=== PATIENT | male | born 2000 | race Asian ===

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

== ENCOUNTER 2022-06-13 18:05 | Emergency (ER) | payer OTHER ==
[~2022-06-13] VITALS: Ht 170.2 cm; Wt 70.5 kg
[2022-06-13 18:08] VITALS: BP 103/67
[2022-06-13] MEDS ORDERED: HYDROCODONE/ACETAMINOPHEN 5-325 MG TABLET PO ONE (20:00)
[2022-06-13] MEDS ORDERED: LIDOCAINE 1% 10 ML VIAL PERC ONE (20:00)
== END 2022-06-13 22:56 | disposition home or self-care (01) ==
LOC: EMS 18:05
DX: S61.304A Unspecified open wound of right ring finger with damage to nail, initial encounter (principal); X58.XXXA Exposure to other specified factors, initial encounter; Y93.89 Activity, other specified; Y92.89 Other specified places as the place of occurrence of the external cause; Y99.0 Civilian activity done for income or pay
CPT/HCPCS: 99284; 73140; 11730; J3490